=== PATIENT | male | born 1995 | race American Indian/Alaskan Native ===

== ENCOUNTER 2019-09-30 00:23 | Emergency (ER) | payer SELFPAY ==
[2019-09-30 00:34] VITALS: BP 120/74
== END 2019-09-30 09:11 | disposition left against medical advice (07) ==
LOC: ED 00:23
DX: Z04.1 Encounter for examination and observation following transport accident (principal); Z53.21 Procedure and treatment not carried out due to patient leaving prior to being seen by health care provider